=== PATIENT | male | born 2005 | race Two or more races ===

== ENCOUNTER 2024-08-31 21:08 | Emergency (ER) | payer MEDICAID, OTHER ==
[~2024-08-31] VITALS: Ht 177.8 cm; Wt 61.3 kg
[2024-08-31 21:29] VITALS: BP 156/78; PULSE 108; RESP 17; O2SAT 92
[2024-08-31] MEDS ORDERED: ONDANSETRON ODT 4 MG TAB PO ONE (21:30)
[2024-08-31] MEDS ORDERED: ACETAMINOPHEN 500 MG TAB PO ONE (21:30)
== END 2024-08-31 21:35 | disposition left against medical advice (07) ==
LOC: ER 21:08 → EDBD 21:08 → ER 21:35
DX: B34.9 Viral infection, unspecified (principal); F15.90 Other stimulant use, unspecified, uncomplicated

== ENCOUNTER 2024-11-02 13:40 | Emergency (ER) | payer MEDICAID ==
[~2024-11-02] VITALS: Ht 177.8 cm; Wt 65.0 kg
[2024-11-02 13:51] VITALS: BP 122/69; PULSE 96; RESP 16; O2SAT 98
== END 2024-11-02 16:20 | disposition left against medical advice (07) ==
LOC: ER 13:40
DX: Z48.00 Encounter for change or removal of nonsurgical wound dressing (principal); Z53.21 Procedure and treatment not carried out due to patient leaving prior to being seen by health care provider